=== PATIENT | female | born 1950 | race Caucasian/White ===

== ENCOUNTER 2021-12-27 14:31 | Observation (INO) ==
[2021-12-27] MEDS ORDERED: Lactated Ringers 1000 ml BAG 1,000 ML IV ONE ×2 (14:54→17:26)
[2021-12-27] MEDS ORDERED: Famotidine IV 10 MG/ML 2 ml VIAL (20 mg) IV SLOW PU ONE (14:54)
[2021-12-27] MEDS ORDERED: Ondansetron 4 mg VIAL 2 MG/ML 2 ml VIAL IV ONE (14:54)
[2021-12-27 15:26] LABS: ABS Basophils 0.1 10^3/ul (0-0.2); ABS Eosinophils 0.1 10^3/ul (0-0.6); ABS Lymphocytes 1.2 10^3/ul (1.0-4.8); ABS Monocytes 0.3 10^3/ul (0-0.8); ABS Neutrophils 3.1 10^3/ul (1.5-7.7); Eosinophil % 1.4 %; Hematocrit 46 % (35-47); Hemoglobin 15.5 g/dL (12.0-16.0); Lymphocyte % 25.8 %; Mean Corpuscular HGB Conc 34 g/dL (31-36); Mean Corpuscular Hemoglobin 30 pg (27-31); Mean Corpuscular Volume 91 fL (80-97); Mean Platelet Volume 8.2 fL (7.4-10.4); Nucleated Red Blood Cells % 0.1; Platelet Count 186 10^3/uL (150-450); Red Blood Count 5.11 10^6 /uL (3.70-4.87); Red Cell Distribution Width 13 % (10-15); White Blood Count 4.7 10^3/uL (3.5-10.8)
[2021-12-27 15:51] LABS: ALT 16 U/L (7-52); AST 14 U/L (13-39); Albumin 4.3 g/dL (3.2-5.2); Albumin/Globulin Ratio 2.4 (1-3); Alkaline Phosphatase 58 U/L (35-149); Anion Gap 8 mmol/L (2-11); Blood Urea Nitrogen 29 mg/dL (6-24); CO2 Carbon Dioxide 27 mmol/L (22-32); Calcium 9.9 mg/dL (8.6-10.3); Chloride 104 mmol/L (101-111); Globulin 1.8 g/dL (2-4); Glucose 211 mg/dL (70-100); Lipase 31 U/L (11.0-82.0); Potassium 4.4 mmol/L (3.5-5.0); Sodium 139 mmol/L (135-145); Total Protein 6.1 g/dL (6.4-8.9); eGFR CKD-EPI 96.1 (>60)
[2021-12-27] MEDS ORDERED: Metoclopramide 5 MG/ML VIAL (10 mg) IV SLOW PU ONE (17:26)
[2021-12-27 17:55] LABS: Urine Benzodiazepine Screen None Detected (None Detect); Urine Cannabinoids Screen Presumptive Positive (None Detect); Urine Opiates Screen None Detected (None Detect)
[2021-12-27] MEDS ORDERED: Droperidol 5 MG/2 ML 2 ML VIAL IV ONE (18:43)
[2021-12-27] MEDS ORDERED: Ondansetron 4 mg VIAL 2 MG/ML 2 ml VIAL IV PRN (19:37)
[2021-12-27] MEDS ORDERED: Enoxaparin 40 MG/0.4 ML SYR SUBCUT SCH (20:00)
[2021-12-27] MEDS ORDERED: Dextrose 50% Syringe 50 ml 25 GM/50 ML SYRINGE IV PUSH PRN (20:33)
[2021-12-27] MEDS ORDERED: Lactated Ringers 1000 ml BAG 1,000 ML IV SCH (21:00)
[2021-12-28 08:43] LABS: Albumin 3.7 g/dL (3.2-5.2); Albumin/Globulin Ratio 2.2 (1-3); Calcium 9.2 mg/dL (8.6-10.3); Globulin 1.7 g/dL (2-4); Total Bilirubin 0.5 mg/dL (0.2-1.0); Total Protein 5.4 g/dL (6.4-8.9); eGFR CKD-EPI 98.2 (>60)
[2021-12-28 11:32] VITALS: BP 122/74
== END 2021-12-28 13:05 | disposition home or self-care (01) ==
LOC: ED 14:31 → EDHOLD 14:31 → MED 12-28 01:10
PROVIDERS: ADMIT Internal Medicine; ATTEND Internal Medicine